=== PATIENT | male | born 1945 | race Caucasian/White ===

== ENCOUNTER → 2020-12-26 08:23 | Outpatient (CLI) | payer OTHER, SELFPAY ==
[2020-12-26 09:18] LABS: Cholesterol 179 mg/dL (140-199); HDL Cholesterol 49 mg/dL (40-60); LDL Cholesterol Calculated 102 mg/dL (<100); Triglycerides 138 mg/dL (35-150)
== END ==
PROVIDERS: PCP Family Medicine; Referring Provider Family Medicine; Visit Provider Family Medicine
DX: E78.5 Hyperlipidemia, unspecified (principal)
CPT/HCPCS: 36415; 80061

== ENCOUNTER → 2021-02-12 07:54 | Outpatient (CLI) | payer OTHER, SELFPAY ==
[2021-02-13 10:52] LABS: Fecal Immunochemical Test Negative (Negative)
== END ==
PROVIDERS: PCP Family Medicine; Referring Provider Family Medicine; Visit Provider Family Medicine
DX: Z12.11 Encounter for screening for malignant neoplasm of colon (principal)
CPT/HCPCS: 82274

== ENCOUNTER → 2022-01-04 14:04 | Outpatient (CLI) | payer OTHER, SELFPAY ==
--- NOTE | 2022-01-04 14:05 | DI.RAD.S_ITS ---
PROCEDURE: XR FINGER LT MIN 2V INDICATIONS: growth TECHNIQUE: AP hand, 2 views of the 2nd finger(s) acquired. COMPARISON: None. FINDINGS: Bones: No fractures or dislocations. Osteoarthritic changes are seen in 2nd MCP joint, PIP and DIP joint more prominent in DIP joint. No definite bony erosion is seen. No suspicious bony lesions. Soft tissues: No suspicious soft tissue calcifications. 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 No fracture or dislocation. No bony erosive changes. Dictated by: José Miguel Hinojosa M.D. on 01/04/2022 at 15:34 Approved by: José Miguel Hinojosa M.D. on 01/04/2022 at 15:34
== END ==
PROVIDERS: PCP Family Medicine; Referring Provider Family Medicine; Visit Provider Family Medicine
DX: M19.042 Primary osteoarthritis, left hand (principal); R22.32 Localized swelling, mass and lump, left upper limb
CPT/HCPCS: 73140

== ENCOUNTER → 2022-01-24 13:35 | Outpatient (CLI) | payer OTHER, SELFPAY ==
[2022-01-25 12:02] LABS: Fecal Immunochemical Test Negative (Negative)
== END ==
PROVIDERS: PCP Family Medicine; Referring Provider Family Medicine; Visit Provider Family Medicine
DX: Z12.11 Encounter for screening for malignant neoplasm of colon (principal)
CPT/HCPCS: 82274

== ENCOUNTER → 2022-09-16 13:33 | Outpatient (CLI) | payer OTHER, SELFPAY ==
--- NOTE | 2022-09-16 13:41 | DI.RAD.S_ITS ---
PROCEDURE: XR CHEST 2V INDICATIONS: Cough TECHNIQUE: 2 views of the chest were acquired. COMPARISON: None. FINDINGS: Surgical changes and devices: None. Lungs and pleura: Lungs are clear. No pleural effusions or pneumothorax. Mediastinum: Mediastinal contours are normal. Heart size is normal. Bones and chest wall: No suspicious bony abnormalities. Soft tissues appear unremarkable. IMPRESSION: No acute process. Dictated by: Danielle Clancy M.D. on 09/16/2022 at 14:03 Approved by: Danielle Clancy M.D. on 09/16/2022 at 14:03
== END ==
PROVIDERS: PCP Family Medicine; Referring Provider Physician Assistant Medical; Visit Provider Physician Assistant Medical
DX: R05.9 Cough, unspecified (principal)
CPT/HCPCS: 71046

== ENCOUNTER → 2023-07-15 10:10 | Outpatient (CLI) | payer OTHER, SELFPAY ==
--- NOTE | 2023-07-15 10:13 | DI.RAD.S_ITS ---
PROCEDURE: XR SHOULDER LT MIN 2V INDICATIONS: lt shoulder pain TECHNIQUE: 3 views of the shoulder were acquired. COMPARISON: None. FINDINGS: Bones: No fractures or dislocations. Mild degenerative changes. No suspicious bony lesions. Visualized ribs appear intact. Soft tissues: No suspicious soft tissue calcifications. IMPRESSION: Mild left shoulder DJD. Dictated by: Rowdy Corbett M.D. on 07/15/2023 at 11:59 Approved by: Rowdy Corbett M.D. on 07/15/2023 at 12:00
== END ==
PROVIDERS: PCP Family Medicine; Referring Provider Pediatrics; Visit Provider Pediatrics
DX: M25.512 Pain in left shoulder (principal); M19.012 Primary osteoarthritis, left shoulder
CPT/HCPCS: 73030